=== PATIENT | male | born 1945 | race Caucasian/White ===

== ENCOUNTER 2022-03-10 17:29 | Emergency (ER) | payer MEDICARE ==
[~2022-03-10] VITALS: Ht 167.6 cm; Wt 102.5 kg
[2022-03-10 17:39] VITALS: BP 120/74
[2022-03-10] MEDS ORDERED: IBUP-1493 PO (20:10)
[2022-03-10] MEDS ORDERED: NIRM1TAB PO (20:10)
[2022-03-10] MEDS ORDERED: ALBU90AE2 IH (20:10)
== END 2022-03-10 20:20 | disposition home or self-care (01) ==
LOC: EDH 17:29
DX: U07.1 COVID-19 (principal); K21.9 Gastro-esophageal reflux disease without esophagitis; E78.00 Pure hypercholesterolemia, unspecified; I10 Essential (primary) hypertension; Z90.49 Acquired absence of other specified parts of digestive tract; Z79.899 Other long term (current) drug therapy; Z88.5 Allergy status to narcotic agent
CPT/HCPCS: 99285; 71045; 87635; 87804 ×2; 93005; C9803